=== PATIENT | female | born 1965 | race Caucasian/White ===

== ENCOUNTER 2024-09-13 10:07 | Observation (INO) ==
[~2024-09-13 10:07] MED LIST: NS 0.45% 1000 ml BAG 1,000 ML IV SCH; Naloxone 0.4 mg VIAL 0.4 mg/ml 1 ml VIAL IV PRN; Ondansetron 4 mg VIAL 2 MG/ML 2 ml VIAL IV PRN; ROPIVACAINE 5 MG/ML 30 ML BTL (0.5%) ONE; fentaNYL 100 mcg/2 ml 50 MCG/ML VIAL IV PRN
[2024-09-13] MEDS: Buffered Lidocaine 1% SYRIN 1 ml INTRADERM ONE (10:44)
[2024-09-13] MEDS ORDERED: ceFAZolin 2 GM PREMIX 2 GM/50 ML BAG ONE (10:47)
[2024-09-13] MEDS ORDERED: Tranexamic Acid 1 GM/100ML BAG 2,000 MG/200 ML BAG IV ONE (10:47)
[2024-09-13] MEDS: Lactated Ringers 1000 ml BAG 1,000 ML IV SCH ×2 (10:56→17:22)
[2024-09-13 10:59] LABS: Rapid COVID-19 Molecular Undetected (Undetected)
[2024-09-13] MEDS ORDERED: ROPIVACAINE 5 MG/ML 30 ML BTL (0.5%) ONE ×2 (11:34→12:02)
[2024-09-13] MEDS ORDERED: fentaNYL 100 mcg/2 ml 50 MCG/ML VIAL ONE ×2 (12:01→14:52)
[2024-09-13] MEDS ORDERED: Dexamethasone IV 4 MG/ML VIAL 1 ml VIAL ONE (12:01)
[2024-09-13] MEDS ORDERED: Midazolam 5 mg/5 ml VIAL 1 mg/ml 5 ml VIAL (5 mg) ONE (12:01)
[2024-09-13] MEDS ORDERED: Ondansetron 4 mg VIAL 2 MG/ML 2 ml VIAL ONE (12:01)
[2024-09-13] MEDS ORDERED: Propofol 10 MG/ML 20 ML BTL ONE (12:01)
[2024-09-13] MEDS ORDERED: Lidocaine 2% PF 5 ML VIAL ONE (12:01)
[2024-09-13] MEDS ORDERED: Propofol 10 mg/ml 100 ML BTL 1,000 MG/100 ML BTL ONE (12:22)
[2024-09-13] MEDS ORDERED: Midazolam 2 mg/2 ml VIAL 1 mg/ml 2 ml VIAL (2 mg) ONE (12:33)
[2024-09-13] MEDS ORDERED: Phenylephrine IV 10 MG/ML 1 ml VIAL ONE (13:15)
[2024-09-13] MEDS ORDERED: Magnesium Hydroxide LIQ 30 ML UDC PO PRN (14:43)
[2024-09-13] MEDS ORDERED: Morphine 2 MG/ML SYRINGE IV PRN (14:43)
[2024-09-13] MEDS ORDERED: Calcium Carb (TUMS) 500 mg CHEW TAB PO PRN (14:43)
[2024-09-13] MEDS ORDERED: Lactulose 30 ml UDC PO PRN (14:43)
[2024-09-13] MEDS ORDERED: Ondansetron 4 mg VIAL 2 MG/ML 2 ml VIAL IV PRN (14:43)
[2024-09-13] MEDS ORDERED: Ondansetron ODT 4 mg TAB 4 MG TAB PO PRN (14:43)
[2024-09-13] MEDS ORDERED: Albuterol HFA INHALER 8 gm MDI INH PRN (17:03)
[2024-09-13] MEDS: Acetaminophen IV 1 GM/100ML 1,000 MG/100 ML BAG IV ONE (17:42)
[2024-09-13] MEDS: Magnesium Hydroxide LIQ 30 ML UDC PO SCH (19:48)
[2024-09-13] MEDS: ceFAZolin 2 GM PREMIX 2 GM/50 ML BAG IV SCH (21:13)
[2024-09-13] MEDS: [UNRECOGNIZED DRUG - REMARK] PO SCH (22:02)
[2024-09-14] MEDS: CMCS:FLUTICAS/UMECLI/VILANT 100-62.5-25 MDI (NF) INH SCH (07:00)
[2024-09-14 07:22] LABS: Hematocrit 33.1 % (35-45); Hemoglobin 11.5 g/dL (11.5-14.3); Mean Platelet Volume 8.5 fL (7.5-11.2); Platelet Count 296 10^3/uL (150-450)
[2024-09-14] MEDS: Vitamin THERAPEUTIC TAB PO SCH (07:42)
[2024-09-14] MEDS: [UNRECOGNIZED DRUG - REMARK] PO SCH (07:45)
[2024-09-14 07:54] LABS: Calcium 9.6 mg/dL (8.6-10.3); Creatinine, Serum 0.98 mg/dL (0.51-0.95); Potassium 4.4 mmol/L (3.5-5.0); eGFR CKD-EPI 66.5 (>60)
[2024-09-14 09:34] VITALS: BP 139/88
[2024-09-14] MEDS: VENLAFAXINE 100 MG PO SCH (10:17)
[2024-09-14] MEDS: Venlafaxine 25 mg TAB (NF) PO SCH (10:41)
== END 2024-09-14 14:15 | disposition home or self-care (01) ==
LOC: OR 10:07 → SSU 10:07
PROVIDERS: ADMIT Orthopaedic Surgery Adult Reconstructive Orthopaedic Surgery; ATTEND Orthopaedic Surgery Adult Reconstructive Orthopaedic Surgery